=== PATIENT | female | born 1995 | race Caucasian/White ===

== ENCOUNTER → 2017-10-08 | Outpatient (CLI) | payer OTHER ==
[2017-10-08 13:56] LABS: AUTOMATED NEUTROPHIL # 5.7 TH/MM3 (1.8-7.7); BASOPHIL % 0.4 % (0.0-2.0); EOSINOPHIL % 0.5 % (0.0-4.0); HEMATOCRIT 39.3 % (35.0-46.0); HEMO FLAGS DIFF FINAL; LYMPH % 16.5 % (9.0-44.0); LYMPHOCYTE # 1.2 TH/MM3 (1.0-4.8); MEAN CELL VOLUME 83.6 FL (80.0-100.0); MEAN CORPUSCULAR HEMOGLOBIN 27.5 PG (27.0-34.0); MEAN CORPUSCULAR HGB CONC 32.8 % (32.0-36.0); MONO % 3.8 % (0.0-8.0); NEUT % 78.8 % (16.0-70.0); PLATELET COUNT 238 TH/MM3 (150-450); RED CELL DISTRIBUTION WIDTH 14.4 % (11.6-17.2); WHITE BLOOD COUNT 7.2 TH/MM3 (4.0-11.0)
[2017-10-08 14:35] LABS: SICKLE CELL SCREEN NEG (NEG)
[2017-10-08 14:41] LABS: BACTERIA, URINE RARE /hpf; BLOOD, URINE NEG (NEG); COMMENT (UR) CULT NOT INDICATED; CULTURE IF INDICATED CULT NOT INDICATED; GLUCOSE,URINE NEG (NEG); KETONE, URINE TRACE mg/dL (NEG); MUCUS URINE FEW /lpf (OCC); NITRITE,URINE NEG (NEG); SQUAMOUS EPITHELIAL CELL URINE 3 /hpf (0-5); URINE COLOR YELLOW (YELLW/STRAW)
[2017-10-08 14:52] LABS: RUBELLA IGG ANTIBODY 74.8 IU/mL (10.0-500.0); RUBELLA STATUS IMMUNE (IMMUNE)
[2017-10-13 23:45] LABS: CYSTIC FIBROSIS RESULT SUM NEGATIVE; CYSTIC FIBROSIS SPECIMEN WB Whole Blood
== END ==
LOC: PLAB 10:58
PROVIDERS: ATTEND Obstetrics & Gynecology
DX: Z13.89 Encounter for screening for other disorder (principal); Z20.820 Contact with and (suspected) exposure to varicella; Z11.59 Encounter for screening for other viral diseases; Z13.0 Encounter for screening for diseases of the blood and blood-forming organs and certain disorders involving the immune mechanism; Z13.228 Encounter for screening for other metabolic disorders; Z3A.00 Weeks of gestation of pregnancy not specified
CPT/HCPCS: 36415; 81001; 81220; 85025; 85660; 86592; 86703; 86762; 86787; 86850; 86900; 86901; 87340

== ENCOUNTER → 2017-11-13 | Outpatient (CLI) | payer MEDICAID, OTHER ==
[2017-11-14 17:09] LABS: CALCULATED AGE AT EDD 24 years; GA USED IN RISK ESTIMATE Dates estimate; MATERNAL RACE BLACK non-Black; MATERNAL WEIGHT (LBS) 152 lbs; RECOMMENDED FOLLOW UP None.
== END ==
LOC: PLAB 12:05
PROVIDERS: ATTEND Obstetrics & Gynecology
DX: Z36.9 Encounter for antenatal screening, unspecified (principal)
CPT/HCPCS: 36415; 81511